=== PATIENT | male | born 1955 | race Caucasian/White ===

== ENCOUNTER 2017-05-17 18:36 | Emergency (ER) | payer BC ==
[~2017-05-17] VITALS: Ht 172.7 cm; Wt 102.7 kg
[2017-05-17 20:07] LABS: HEMATOCRIT 37.6 % (38.0-50.0); HEMOGLOBIN 13.2 G/DL (12.5-16.6); MCH 31.7 PG (29.0-34.0); MCHC 35.1 G/DL (30.0-36.0); MCV 90.4 FL (86-99); PLATELET COUNT 270 K/uL (156-360); RBC DIS.WIDTH-SD 43.3 % (39-53); RED BLOOD COUNT 4.16 M/uL (4.00-5.50); WHITE BLOOD COUNT 9.6 K/uL (4.1-10.2)
[2017-05-17 20:16] LABS: ALBUMIN 4.2 g/dL (3.2-4.8); CHLORIDE 104 mEq/L (99-109); POTASSIUM 4.3 mEq/L (3.7-5.4); SODIUM 137 mEq/L (136-147)
[2017-05-17 20:18] LABS: GLUCOSE 116 mg/dL (70-99); TOTAL PROTEIN 7.2 g/dL (6.4-8.3)
[2017-05-17 20:20] LABS: TOTAL BILIRUBIN 0.6 mg/dL (0.0-1.0)
[2017-05-17 20:22] LABS: ALKALINE PHOSPHATASE 77 IU/L (3-129); CREATININE 0.8 mg/dL (0.6-1.3); GFR ESTIMATE (CALCULATED) > 59 mL/min/ (58.99-99999)
[2017-05-17 20:23] LABS: AST (GOT) 17 IU/L (2-34); UREA NITROGEN (BUN) 15 mg/dL (9-23)
[2017-05-17 20:25] LABS: ALT (GPT) 17 IU/L (3-49)
[2017-05-18 01:19] LABS: TROP-I INTERPRETATION NEGATIVE; TROPONIN-I < 0.01 ng/mL (0.0-0.30)
[2017-05-18 02:25] VITALS: BP 124/76
[2017-05-18 02:41] LABS: APPEARANCE CLEAR ((CLEAR)); BILIRUBIN NEGATIVE; BLOOD NEGATIVE; COLOR YELLOW ((YELLOW)); GLUCOSE (STRIP) NEGATIVE; KETONES NEGATIVE; LEUKOCYTES NEGATIVE; NITRITE NEGATIVE; PROTEIN (STRIP) NEGATIVE; SPECIFIC GRAVITY 1.021 (1.000-1.030)
== END 2017-05-18 02:40 | disposition home or self-care (01) ==
LOC: EME 18:36
PROVIDERS: Physician Assistant
DX: M79.89 Other specified soft tissue disorders (principal); K40.90 Unilateral inguinal hernia, without obstruction or gangrene, not specified as recurrent
CPT/HCPCS: 71046; 74176; 80053; 81003; 84484; 85027; 93005; 99281; 99284

== ENCOUNTER 2017-06-13 09:06 | Emergency (ER) | payer BC ==
[~2017-06-13] VITALS: Ht 172.7 cm; Wt 100.3 kg
[2017-06-13 11:53] VITALS: BP 159/84
== END 2017-06-13 11:53 | disposition home or self-care (01) ==
LOC: EME 09:06
DX: S01.01XA Laceration without foreign body of scalp, initial encounter (principal); S60.511A Abrasion of right hand, initial encounter; S60.512A Abrasion of left hand, initial encounter; W10.9XXA Fall (on) (from) unspecified stairs and steps, initial encounter; Z23 Encounter for immunization
CPT/HCPCS: 70450; 99281; 99284